=== PATIENT | male | born 1995 | race Caucasian/White ===

== ENCOUNTER 2024-05-12 12:49 | Observation (INO) | payer SELFPAY ==
[2024-05-12] VITALS (18 sets, daily range): BP systolic 109–157; BP diastolic 57–99; PULSE 70–102; RESP 15–20; TEMP 36.7–36.8; O2SAT 98–100; BMI 22.3
--- NOTE | 2024-05-12 12:53 | ECG_ITS ---
APPROVED REPORT Exam: Resting ECG HR:91 bpm ECG Measurements Heart Rate 91 AXES ME 127 P 64 QRSd 113 QRS 92 QT 349 T 43 QTc 398 Conclusion Sinus rhythm Right axis deviation Incomplete right bundle branch block Electronically signed by : BELINDA NARVAEZ, 05/12/2024 14:53:42
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
[2024-05-12] MEDS: LACTATED RINGERS 1000ML 1,000 ML 999 ML IV (13:35)
[2024-05-12] MEDS: droPERidol 5MG/2ML VIAL 2.5 MG IV (13:40)
[2024-05-12 13:42] LABS: Basophils # 0.1 K/mm3 (0-0.2); Basophils % 0.6 % (0.1-2.0); Eosinophils % 0.3 % (0.1-12.0); Hematocrit 45.6 % (42.0-52.0); Hemoglobin 15.7 g/dL (14.1-18.0); Lymphocytes # 1.1 K/mm3 (0.7-4.5); Lymphocytes % 9.7 % (10-50); Mean Corpuscular HGB Conc 34.3 g/dL (31.8-35.4); Mean Corpuscular Hemoglobin 31.2 pg (27.0-31.2); Mean Corpuscular Volume 90.9 fl (80-94); Mean Platelet Volume 7.2 fl (7.4-10.4); Monocytes # 0.7 K/mm3 (0.1-1.0); Monocytes % 6.4 % (1.7-9.3); Neutrophils # 9.2 K/mm3 (1.8-7.8); Neutrophils % 82.9 % (37.0-80.0); Platelet Count 303 K/mm3 (142-424); Red Blood Count 5.02 M/mm3 (4.60-6.20); Red Cell Distribution Width 14.2 % (11.5-17.5); White Blood Count 11.1 K/mm3 (4.8-10.8)
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
--- NOTE | 2024-05-12 13:52 | PC.NURSE ---
pt to ct
[2024-05-12 13:55] LABS: Activated Partial Thrombo Time 26.8 seconds (22.8-30.6); INR 0.92 (0.9-1.1); Prothrombin Time 10.4 seconds (10.1-12.5)
[2024-05-12 13:57] LABS: Alanine Aminotransferase 52 U/L (12-78); Albumin/Globulin Ratio 1.9 (1.1-1.8); Alkaline Phosphatase 69 U/L (38-126); Anion Gap 6.4 mEq/L (5-15); Aspartate Amino Transferase 43 U/L (17-59); Bilirubin,Total 0.7 mg/dl (0.2-1.3); Blood Urea Nitrogen 13 mg/dl (9-20); Carbon Dioxide 26 mmol/L (22.0-30.0); Chloride 108 mmol/L (98-107); Creatinine Clearance Estimated 92 mL/min (50-200); Estimated Glomerular Filt Rate 71 ml/min (>60); GFR (African American) 86 ML/MIN (>60); Globulin 2.7 g/dL (1.3-3.2); Glucose 84 mg/dl (74-100); Potassium 3.4 mmoL/L (3.5-5.1); Sodium 137 mmol/L (136-145); Total Protein,Serum 7.7 g/dl (6.3-8.2)
[2024-05-12 14:04] LABS: Ethyl Alcohol < 10 mg/dl (0-10)
[2024-05-12 14:12] LABS: Troponin I < 0.01 ng/ml (0.00-0.034)
[2024-05-12] MEDS: SODIUM CHLORIDE 0.9% 10ML SYR (RAD ONLY) 10 ML IV (14:12)
[2024-05-12] MEDS: IOPAMIDOL-370 (76%);100ML BOTTLE 160 ML IV (14:12)
[2024-05-12] MEDS: 0.9 % SODIUM CHLORIDE 50 ML VIAL 80 ML IV (14:12)
--- NOTE | 2024-05-12 16:07 | PC.NURSE ---
spoke with Keri from Poison Control. pt is to be watched for at least 12 hours. give narcan if respirations less than 8. draw tylenol salicilate levels. Will continue to monitor. Police @ bedside
--- NOTE | 2024-05-12 16:10 | PC.NURSE ---
Dr. Hastings at BS to reassess pt
[2024-05-12 16:11] LABS: Microscopic, Urine URINE MICROSCOPIC (MICROSCOPIC)
[2024-05-12 16:12] LABS: Appearance,Urine CLEAR (Clear); Bilirubin,Urine Negative (Negative); Blood, Urine 2+ (Negative); Color,Urine YELLOW (Yellow); Glucose,Urine (UA) Negative (Negative); Ketones,Urine TRACE (Negative); Leukocyte Esterase,Urine 2+ (Negative); Nitrate,Urine Negative (Negative); Protein,Urine TRACE (Negative); Urobilinogen,Urine 0.2 EU/dl (0.2)
--- NOTE | 2024-05-12 16:13 | PC.NURSE ---
dr mayberry speaking with hospitalist
--- NOTE | 2024-05-12 16:15 | PC.NURSE ---
salesperson household appliances notified of admission
[2024-05-12 16:26] LABS: Barbiturates Screen,Urine Negative ng/ml (<200); Benzodiazepines Screen,Urine Negative ng/ml (<200)
[2024-05-12 16:27] LABS: Cannabinoid Screen,Urine Positive ng/ml (<50); Cocaine Screen,Urine Positive ng/ml (<300)
[2024-05-12 16:28] LABS: Methadone Screen,Urine Negative ng/ml (<300)
[2024-05-12 16:29] LABS: Opiate Screen,Urine Negative ng/ml (<300); Phencyclidine Screen,Urine Negative ng/ml (<25)
[2024-05-12 16:32] LABS: RBC,Urine 50-100 #/hpf (0-3); WBC,Urine TNTC #/hpf (0-3)
[2024-05-12 16:33] LABS: Bacteria,Urine 2+ /lpf
[2024-05-12] MEDS: LIDOCAINE 1% 5ML PF VIAL IM (16:35)
[2024-05-12] MEDS: cefTRIAXone 500MG VIAL 500 MG IM (16:35)
[2024-05-12 16:42] LABS: Lactic Acid 0.9 mmol/L (0.7-2.1)
[2024-05-12] MEDS: DOXYCYCLINE HYCLATE 100 MG in 0.9 % SODIUM CHLORIDE 250 ML 166.667 MG IV (16:45)
[2024-05-12 16:50] LABS: Acetaminophen < 10 ug/ml (10-30); Salicylate < 1.0 mg/dL (2.0-20.0)
[2024-05-12 17:07] LABS: Troponin I < 0.01 ng/ml (0.00-0.034)
[2024-05-12] MEDS: LACTATED RINGERS 1000ML 1,000 ML 100 ML IV (17:08)
--- NOTE | 2024-05-12 17:15 | PC.NURSE ---
Pt. not able to stay awake for assessment or admission, refused gown, f/c in place on RA, 20g in the L FA LR AT 100ML/ HR, officer in room.
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
--- NOTE | 2024-05-12 17:59 | PC.NURSE ---
Officer in room and i listened to the patients lungs which are clear, bowel sounds positive, no swelling in ankles 20g in the right ac lr at 100 ml/hr, pt sleeping.
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
[2024-05-12 18:17] LABS: Amphetamine/Metha Screen,Urine Positive ng/ml (<1000)
[2024-05-12] MEDS: NALOXONE 2MG/2ML SYRINGE 1 MG IV (19:32)
[2024-05-12 19:54] LABS: Troponin I < 0.01 ng/ml (0.00-0.034)
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
[2024-05-13] VITALS: BP 132/78; PULSE 69; PULSE 92; RESP 16; TEMP 37.2; O2SAT 98
[2024-05-13 02:00] VITALS: BP 135/82; PULSE 69; RESP 18; TEMP 36.7; O2SAT 97
--- NOTE | 2024-05-13 03:37 | PC.NURSE ---
Poison control called to get an update on pt status and current vitals. After giving update they decided to close current case.
[2024-05-13] MEDS: LACTATED RINGERS 1000ML 1,000 ML 100 ML IV (03:43)
[2024-05-13 04:00] VITALS: BP 144/78; PULSE 69; PULSE 74; RESP 16; TEMP 36.9; O2SAT 98; BMI 22.2
[2024-05-13 07:39] VITALS: BP 142/87; PULSE 70; RESP 16; TEMP 36.9; O2SAT 100
[2024-05-13 08:00] VITALS: PULSE 80
--- NOTE | 2024-05-13 09:56 | XR_ITS ---
PROCEDURE INFORMATION: Exam: XR Chest Exam date and time: 05/13/2024 11:36 AM Age: 28 years old Clinical indication: Cough; Additional info: Productive cough, leukocytosis TECHNIQUE: Imaging protocol: Radiologic exam of the chest. Views: 1 view. COMPARISON: CT ANGIO CHEST 05/12/2024 2:14 PM FINDINGS: Lungs: Unremarkable. No consolidation. Pleural spaces: Unremarkable. No pleural effusion. No pneumothorax. Heart/Mediastinum: Unremarkable. No cardiomegaly. Bones/joints: Unremarkable. IMPRESSION: No acute findings.
[2024-05-13] MEDS: IPRATROPIUM/ALBUTEROL 3 ML NEB IH (11:42)
[2024-05-13] MEDS: DOXYCYCLINE HYCL 100 MG TABLET PO (11:52)
[2024-05-13 12:00] VITALS: PULSE 80
[2024-05-13 12:09] LABS: Basophils # 0.1 K/mm3 (0-0.2); Basophils % 1.1 % (0.1-2.0); Eosinophils # 0.1 K/mm3 (0.0-0.4); Eosinophils % 1.2 % (0.1-12.0); Hematocrit 45.2 % (42.0-52.0); Hemoglobin 15.1 g/dL (14.1-18.0); Lymphocytes # 1.6 K/mm3 (0.7-4.5); Lymphocytes % 19.5 % (10-50); Mean Corpuscular HGB Conc 33.5 g/dL (31.8-35.4); Mean Corpuscular Hemoglobin 30.8 pg (27.0-31.2); Mean Platelet Volume 7.1 fl (7.4-10.4); Monocytes # 0.5 K/mm3 (0.1-1.0); Monocytes % 6.4 % (1.7-9.3); Neutrophils # 5.8 K/mm3 (1.8-7.8); Neutrophils % 71.9 % (37.0-80.0); Platelet Count 293 K/mm3 (142-424); Red Blood Count 4.91 M/mm3 (4.60-6.20); Red Cell Distribution Width 14.3 % (11.5-17.5); White Blood Count 8.1 K/mm3 (4.8-10.8)
[2024-05-13 12:18] LABS: Chloride 106 mmol/L (98-107); Potassium 3.7 mmoL/L (3.5-5.1); Sodium 139 mmol/L (136-145)
[2024-05-13 12:21] LABS: Anion Gap 10.7 mEq/L (5-15); Blood Urea Nitrogen 14 mg/dl (9-20); Calcium 9.2 mg/dl (8.4-10.2); Carbon Dioxide 26 mmol/L (22.0-30.0); Creatinine Clearance Estimated 138 mL/min (50-200); Estimated Glomerular Filt Rate 114 ml/min (>60); GFR (African American) 137 ML/MIN (>60); Glucose 92 mg/dl (74-100)
[2024-05-13 12:22] LABS: Magnesium 2.1 mg/dl (1.6-2.3)
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
--- NOTE | 2024-05-13 14:49 | PEERSUPPORT ---
Peer Support Note Patient Information Patient Information: DOS: 05/13/2024 ? Reason: Stim UD ? Pt is alert or oriented. ? Pt is open to share his [facility] lynn with drug use, that ends up with him arrested and thrown in [facility]pc. He had been honest with his transit authority police officer, asking to see a counselor of his relapse. Now feels like he is being punished for being honest and doing the right thing. ? He has spent ten years of his life in penitentiary to be released only two months ago, without the proper help and guidance on how to reenter the streets after being released. ? Pt states he has never been to an inpatient rehabilitation for his drug use, only in substance abuse programs while in fpc. He says he wants to go to long-term treatment if the courts will consider or allow it, to find peace of mind and purpose in his life. He says at this rate he does not have a true purpose living the life he is. ? Ps shared personal relevant stories emphasizing the possibility of change through education of addiction and self-assessment with honesty to foster hope and responsibility one can achieve through recovery. ? Ps provides contact information to [facility] in [place], [place] as a facility option when opportunity is available. ? Pt expressed gratitude for care and compassion. ? Thank you for allowing [facility] to assist in caring for the patient!
[2024-05-16 21:08] LABS: Trichomonas Vaginalis, NAA Negative (Negative)
== END 2024-05-13 13:32 ==
LOC: ER 16:10 → 2ND 17:33
PROVIDERS: Admitting Provider Student in an Organized Health Care Education/Training Program; Emergency Provider Emergency Medicine; Visit Provider Student in an Organized Health Care Education/Training Program
DX: G93.41 Metabolic encephalopathy (principal); N34.2 Other urethritis; F17.210 Nicotine dependence, cigarettes, uncomplicated; F12.90 Cannabis use, unspecified, uncomplicated; F15.90 Other stimulant use, unspecified, uncomplicated; F14.90 Cocaine use, unspecified, uncomplicated; V49.88XA Car occupant (driver) (passenger) injured in other specified transport accidents, initial encounter; Y92.73 Farm field as the place of occurrence of the external cause
CPT/HCPCS: 70450; 70496; 70498; 71045; 71275; 72125; 72128; 72131; 72170; 73110; 74174; 80048; 80053; 80307; 80320; 80329; 81001; 83605; 83735; 84484; 85025; 85610; 85730; 87086; 87491; 87563; 87591; 87661; 87798; 93005; 94640; 99291; G0378; G0480; J0696; J1790; J2310; J7120; J7620; Q9967